=== PATIENT | male | born 1955 | race Caucasian/White ===

== ENCOUNTER → 2023-11-04 14:25 | Outpatient (REF) | payer MEDICARE, OTHER, SELFPAY | LOC: HWRAD 14:25 | PROVIDERS: ATTENDING PHYSICIAN Nurse Practitioner Adult Health; FAMILY PHYSICIAN Family Medicine | DX: R22.9 Localized swelling, mass and lump, unspecified (principal); R22.42 Localized swelling, mass and lump, left lower limb | CPT/HCPCS: 76882 ==

== ENCOUNTER → 2023-12-22 11:15 | Outpatient (REF) | payer MEDICARE, OTHER, SELFPAY | LOC: PAVMRI 11:15 | PROVIDERS: ATTENDING PHYSICIAN Physician Assistant; FAMILY PHYSICIAN Family Medicine | DX: M25.562 Pain in left knee (principal) | CPT/HCPCS: 73723 ==